=== PATIENT | male | born 1970 | race American Indian/Alaskan Native ===

== ENCOUNTER 2018-02-23 18:46 | Emergency (ER) | payer MEDICAID ==
--- NOTE | 2018-02-23 20:24 | C.PDOC ---
History Of Present Illness 47yo male, comes to ER for evaluation of palpitations, present intermittently x 3 days. Patient states the palpitations worsen with stress and reports he has been dealing with familial problems which has increased his stress. He denies any associated chest pain or shortness of breath. He also denies any new medications or recent drug use. Patient states he has a history of hypertension , and high cholesterol but has not taken medications since 2010. Time Seen by Provider: 02/23/18 19:43 Chief Complaint (Nursing): Chest Pain History Per: Patient History/Exam Limitations: no limitations Onset/Duration Of Symptoms: Days Current Symptoms Are (Timing): Still Present Quality: Other (palpitations) Associated Symptoms: denies: Nausea, Dyspnea, Diaphoresis, Syncope Additional History Per: Patient Past Medical History Reviewed: Historical Data, Nursing Documentation, Vital Signs Vital Signs: Last Vital Signs Temp 98.2 F 02/23/18 21:37 Pulse 63 02/23/18 21:37 Resp 19 02/23/18 21:37 BP 154/91 H 02/23/18 21:37 Pulse Ox 100 02/23/18 21:37 - Medical History PMH: HTN, Hypercholesterolemia Surgical History: No Surg Hx Family History: States: No Known Family Hx - Social History Hx Alcohol Use: Yes Hx Substance Use: Yes - Immunization History Hx Tetanus Toxoid Vaccination: No Hx Influenza Vaccination: No Hx Pneumococcal Vaccination: No Review Of Systems Constitutional: Negative for: Fever, Chills Cardiovascular: Positive for: Palpitations Respiratory: Negative for: Shortness of Breath Gastrointestinal: Negative for: Vomiting, Diarrhea Physical Exam - Physical Exam Additional Physical Exam Comments: Constitutional: No acute distress. Head: Normocephalic. Atraumatic. Eyes: PERRL. ENT: Moist mucous membranes. Neck: Supple. Cardiovascular: Regular rate. Radial pulse 2+ bilaterally. Chest: No tenderness. Respiratory: Clear to auscultation bilaterally. GI: Soft. Nontender. Back: No CVA tenderness. Musculoskeletal: No tenderness or swelling of extremities. Skin: No rash. Neurologic: Alert, no focal deficit. ED Course And Treatment - Laboratory Results Result Diagrams: 02/23/18 20:25 02/23/18 20:25 O2 Sat by Pulse Oximetry: 98 Medical Decision Making Medical Decision Making: Impression: 47yo male with palpitations Plan: * Labs * EKG * CXR 2045 CXR reviewed, no acute disease. EKG NSR 60 bpm, no ST elevations, early repole Disposition - Disposition Referrals: [facility] [Outside] Disposition: HOME/ ROUTINE Disposition Time: 21:50 Condition: STABLE Instructions: Palpitations Forms: [facility] (Uzbek) - Clinical Impression Clinical Impression: Palpitations - Scribe Statement The provider has reviewed the documentation as recorded by the Scribe (Therese Tse) Provider Attestation: All medical record entries made by the Scribe were at my direction and personally dictated by me. I have reviewed the chart and agree that the record accurately reflects my personal performance of the history, physical exam, medical decision making, and the department course for this patient. I have also personally directed, reviewed, and agree with the discharge instructions and disposition.
[2018-02-23 20:29] LABS: BASO # 0.1 K/uL (0.0-0.2); BASO % 1.1 % (0.0-2.0); EOS % 0.1 % (0.0-4.0); HEMOGLOBIN 16.4 g/dL (11.0-18.0); LYMPH # 1.5 K/uL (1.0-4.3); LYMPH % 25.4 % (20.0-40.0); MEAN CORPUSCULAR HEMOGLOBIN 29.5 pg (27.0-31.0); MEAN PLATELET VOLUME 7.4 fL (7.2-11.7); MONO # 0.4 K/uL (0.0-0.8); MONO % 7.2 % (0.0-10.0); NEUT # 3.9 K/uL (1.8-7.0); NEUT % 66.2 % (50.0-75.0); NRBC % 0.1 % (0.0-2.0); RBC 5.56 Mil/uL (3.80-5.90); RED CELL DISTRIBUTION WIDTH 13.4 % (11.5-14.5); WHITE BLOOD COUNT 5.9 K/uL (4.8-10.8)
[2018-02-23 20:32] VITALS: RESP 19
[2018-02-23 20:53] LABS: ALB/GLOB RATIO 1.2 (1.0-2.1); ALBUMIN 4.7 g/dL (3.5-5.0); ALT/SGPT 23 U/L (9-72); AST/SGOT 27 U/L; BLOOD UREA NITROGEN 12 mg/dL (7-20); CALCIUM 9.6 mg/dl (8.6-10.4); GFR NON-AFRICAN AMERICAN > 60 (0)
[2018-02-23 21:05] LABS: CK-MB 0.77 ng/mL (0.0-3.38)
[2018-02-23 21:39] VITALS: BP 154/91; PULSE 63; TEMP 98.2
[2018-02-23 21:51] VITALS: O2SAT 98
--- NOTE | 2018-02-23 23:42 | RAD ---
HISTORY: palpitations COMPARISON: None available. TECHNIQUE: Chest PA and lateral FINDINGS: LUNGS: Hyperinflation. No focal consolidation. Please note that chest x-ray has limited sensitivity for the detection of pulmonary masses. PLEURA: No significant pleural effusion identified. No definite pneumothorax . CARDIOVASCULAR: The cardiomediastinal silhouette appears within normal limits of size. OSSEOUS STRUCTURES: No acute osseous abnormality identified. VISUALIZED UPPER ABDOMEN: Unremarkable. OTHER FINDINGS: None. IMPRESSION: Hyperinflation. No acute findings.
--- NOTE | 2018-02-24 23:45 | CARD ---
APPROVED REPORT Date of service: 02/23/2018 EKG Measurement Heart [id number] <Conclusion> Sinus bradycardia Early repolarization Otherwise normal ECG
== END 2018-02-23 22:17 | disposition home or self-care (01) ==
LOC: C.ER 18:46
DX: R00.2 Palpitations (principal); I10 Essential (primary) hypertension; E78.00 Pure hypercholesterolemia, unspecified; F17.210 Nicotine dependence, cigarettes, uncomplicated